=== PATIENT | female | born 1960 | race Caucasian/White ===

== ENCOUNTER 2017-01-05 16:20 | Emergency (ER) | payer MEDICAID ==
[~2017-01-05] VITALS: Ht 172.7 cm; Wt 72.6 kg
[~2017-01-05 16:20] MED LIST: AMLO5TAB2 PO; ERGO500047 PO; GABA600T2 PO; IBUP-1482 PO; METF500T4 PO; OMEP40CA37 PO; PRAV40TA3 PO; TRAM50TA2 PO; ZOLP5TAB2 PO
--- NOTE | 2017-01-05 16:45 | NUR ---
dr carrasquillo at the bedside for eval and exam.
[2017-01-05 16:58] VITALS: BP 118/70
--- NOTE | 2017-01-05 17:04 | NUR ---
Patient discharged to home in stable conditon. Written and verbal after care instructions given. Patient verbalizes understanding of instructions.
== END 2017-01-05 17:05 | disposition home or self-care (01) ==
LOC: ER 16:20
DX: H60.91 Unspecified otitis externa, right ear (principal); H66.91 Otitis media, unspecified, right ear; I10 Essential (primary) hypertension; K21.9 Gastro-esophageal reflux disease without esophagitis; E11.9 Type 2 diabetes mellitus without complications; F32.9 Major depressive disorder, single episode, unspecified; F10.20 Alcohol dependence, uncomplicated
CPT/HCPCS: 99283; A4663

== ENCOUNTER 2024-04-15 07:39 | Emergency (ER) | payer MEDICARE, OTHER ==
[~2024-04-15] VITALS: Ht 170.2 cm; Wt 74.8 kg
[~2024-04-15 07:39] MED LIST changes: +AMLO-212 PO; -AMLO5TAB2 PO; +ERGO500040 PO; -ERGO500047 PO; +GABA600T12 PO; -GABA600T2 PO; -IBUP-1482 PO; +IBUP-1957 PO; +METF-440 PO; -METF500T4 PO; +OMEP40CA21 PO; -OMEP40CA37 PO
[2024-04-15] MEDS ORDERED: METF-441 PO (08:14)
[2024-04-15] MEDS ORDERED: LOSA100T31 PO (08:17)
[2024-04-15] MEDS ORDERED: DAPA10TA PO (08:17)
[2024-04-15] MEDS ORDERED: BACL10TA PO (08:17)
[2024-04-15 08:33] LABS: CALCIUM 9.7 mg/dL (8.5-10.1); CARBON DIOXIDE 24 mmol/L (21-32); CHLORIDE 104 mmol/L (98-107); CREATININE 1.4 mg/dL (0.6-1.3); GLUCOSE 121 mg/dL (74-106); POTASSIUM 4.3 mmol/L (3.5-5.1); SODIUM SERUM 139 mmol/L (136-145); UREA NITROGEN, BLOOD 21 mg/dL (7-18)
[2024-04-15] MEDS ORDERED: NITROGLYCERIN 0.4 MG/TAB BOTTLE SL ONE (08:34)
[2024-04-15 08:37] LABS: BASOPHILS # (AUTO) 0.1 K/UL (0.0-0.2); EOSINOPHILS # (AUTO) 0.1 K/uL (0.0-0.7); EOSINOPHILS % (AUTO) 1.5 % (0.0-7.0); HEMATOCRIT 36.9 % (31.2-41.9); HEMOGLOBIN 12.3 g/dL (10.9-14.3); LYMPHOCYTES # (AUTO) 1.1 K/uL (0.8-4.8); MEAN CORPUSCULAR HEMOGLOBIN 28.6 uug (24.7-32.8); MEAN CORPUSCULAR HGB CONC 34 g/dL (32.3-35.6); MEAN CORPUSCULAR VOLUME 85.6 fL (75.5-95.3); MONOCYTES # (AUTO) 0.8 K/uL (0.1-1.30); MONOCYTES % (AUTO) 8.9 % (0.0-11.0); NEUTROPHILS % (AUTO) 76.6 % (38.5-71.5); PLATELET COUNT (AUTO) 178 K/uL (179-408); RED BLOOD CELL COUNT(AUTO) 4.31 MIL/uL (3.63-4.92); RED CELL DISTRIBUTION WIDTH 15.4 % (12.3-17.7); WHITE BLOOD COUNT (AUTO) 9.1 K/uL (3.8-11.8)
[2024-04-15] MEDS: NITROGLYCERIN 0.4 MG/TAB BOTTLE SL ONE (08:38)
[2024-04-15 08:45] LABS: DIFFERENTIAL COMMENT 1
[2024-04-15] MEDS ORDERED: MAGNESIUM SULFATE/D5W 200 ML ONE (09:03)
[2024-04-15] MEDS: MAGNESIUM SULFATE/D5W 100 ML IV SCH (09:04)
[2024-04-15] MEDS ORDERED: FLUT16SP16 BNOSTRILS (09:42)
[2024-04-15] MEDS ORDERED: PSEU-249 PO (09:42)
[2024-04-15] MEDS ORDERED: OXYM15MI4 NS (09:42)
[2024-04-15] MEDS ORDERED: AMOX-430 PO (09:42)
[2024-04-15] MEDS ORDERED: ACET1TAB23 PO (09:42)
[2024-04-15 10:55] VITALS: BP 108/67; TEMP 97.7; O2SAT 97
== END 2024-04-15 10:56 | disposition home or self-care (01) ==
LOC: ER 07:41
DX: J32.0 Chronic maxillary sinusitis (principal); E83.42 Hypomagnesemia; R07.89 Other chest pain; I10 Essential (primary) hypertension; K21.9 Gastro-esophageal reflux disease without esophagitis; E11.9 Type 2 diabetes mellitus without complications; F32.A Depression, unspecified; Z79.1 Long term (current) use of non-steroidal anti-inflammatories (NSAID); Z79.84 Long term (current) use of oral hypoglycemic drugs; Z79.899 Other long term (current) drug therapy; Z88.0 Allergy status to penicillin
CPT/HCPCS: 99285; 96365; 71045; 96366; 80048; 83735; 85025; 84484; 36415; 93005; J3475; A4606; A4663